=== PATIENT | female | born 1995 | race African-American/Black ===

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

== ENCOUNTER 2018-01-06 01:15 | Emergency (ER) | payer MEDICAID ==
[~2018-01-06] VITALS: Ht 162.6 cm; Wt 59.0 kg
[2018-01-06 04:07] LABS: BASOPHILS % 0.8 % (0.0-2.0); EOSINOPHILS % 0.5 % (0.0-5.0); HEMOGLOBIN. 13.4 g/dL (12.0-16.0); LYMPHOCYTES % 14.2 % (20.0-50.0); MEAN CORPUSCULAR VOLUME 82.5 fL (81.0-99.0); MEAN PLATELET VOLUME 9.6 fl (7.4-10.4); MONOCYTES % 7.9 % (2.0-8.0); NEUTROPHILS % 76.6 % (40.0-76.0); PLATELET 285 x1000/uL (130-400); RED BLOOD CELL COUNT 4.97 mill/uL (4.2-5.4); RED CELL DISTRIBUTION WIDTH 13.6 % (11.6-14.6)
[2018-01-06 04:13] LABS: CHLORIDE 109 mEq/L (98-107)
[2018-01-06 04:17] LABS: ETHANOL BLOOD < 10 mg/dL
[2018-01-06] MEDS ORDERED: BACITRACIN ZINC OINT UDPKT TOP ONE (08:30)
[2018-01-06] MEDS ORDERED: IBUPROFEN 600MG TABLET PO STA (09:30)
[2018-01-06 11:00] VITALS: BP 110/80
== END 2018-01-06 11:54 | disposition home or self-care (01) ==
LOC: ER 01:15
DX: F91.8 Other conduct disorders (principal); F32.9 Major depressive disorder, single episode, unspecified; F17.200 Nicotine dependence, unspecified, uncomplicated; Z88.6 Allergy status to analgesic agent
CPT/HCPCS: 36415; 73060; 80053; 80307; 80329; 85025; 99284; G0482

== ENCOUNTER 2019-10-05 12:22 | Emergency (ER) | payer MEDICAID ==
[~2019-10-05] VITALS: Ht 165.1 cm; Wt 82.0 kg
[2019-10-05] MEDS ORDERED: ACETAMINOPHEN 325MG TABLET PO STA (12:45)
[2019-10-05 13:41] LABS: BASOPHILS % 0.7 % (0.0-2.0); EOSINOPHILS % 0.8 % (0.0-5.0); HEMATOCRIT. 41.6 % (36.0-48.0); HEMOGLOBIN. 13.4 g/dL (12.0-16.0); LYMPHOCYTES % 19.8 % (20.0-50.0); MEAN CORPUSCULAR HEMOGLOBIN 24.9 pg (28.0-32.0); MEAN CORPUSCULAR VOLUME 77.4 fL (81.0-99.0); MEAN PLATELET VOLUME 9.5 fl (7.4-10.4); MONOCYTES % 4.7 % (2.0-8.0); PLATELET 330 x1000/uL (130-400); RED BLOOD CELL COUNT 5.37 mill/uL (4.2-5.4); RED CELL DISTRIBUTION WIDTH 15.7 % (11.6-14.6)
[2019-10-05 13:48] LABS: CHLORIDE 109 mEq/L (98-107); CLARITY URINE CLOUDY (CLEAR); COLOR URINE DK YELLOW (YELLOW); KETONES URINE TRACE (NEGATIVE); LEUKOCYTE ESTERASE URINE TRACE (NEGATIVE); NITRITE URINE NEGATIVE (NEGATIVE); OCCULT BLOOD URINE 3+ (NEGATIVE); PROTEIN URINE 1+ (NEGATIVE); SPECIFIC GRAVITY URINE 1.041 (1.005-1.030)
[2019-10-05 13:52] LABS: ETHANOL BLOOD 33 mg/dL
[2019-10-05 14:14] LABS: *AMPHETAMINES SCREEN URINE NEGATIVE (NEGATIVE); *BARBITURATES SCREEN URINE NEGATIVE (NEGATIVE); *BENZODIAZEPINES SCREEN URINE NEGATIVE (NEGATIVE); METHADONE URINE SCREEN NEGATIVE (NEGATIVE)
[2019-10-05 14:15] LABS: *COCAINE SCREEN URINE PRESUMTIVE POSITIVE (NEGATIVE); CANNABINOID URINE SCREEN NEGATIVE (NEGATIVE); OPIATES URINE SCREEN NEGATIVE (NEGATIVE); PHENCYCLIDINE URINE SCREEN NEGATIVE (NEGATIVE)
[2019-10-05] MEDS ORDERED: POTASSIUM CHLORIDE 20MEQ TABLET SR PO ONE (14:15)
[2019-10-05 17:16] VITALS: BP 136/72
== END 2019-10-05 17:31 | disposition home or self-care (01) ==
LOC: ER 12:22
DX: T40.5X1A Poisoning by cocaine, accidental (unintentional), initial encounter (principal); F10.129 Alcohol abuse with intoxication, unspecified; E87.6 Hypokalemia; Y90.1 Blood alcohol level of 20-39 mg/100 ml; Z88.6 Allergy status to analgesic agent
CPT/HCPCS: 36415; 80053; 80305; 80320; 81003; 81025; 85025; 93005; 99285; G0480

== ENCOUNTER 2020-09-23 08:31 | Emergency (ER) | payer MEDICAID ==
[~2020-09-23] VITALS: Ht 165.1 cm; Wt 59.0 kg
[2020-09-23 08:39] VITALS: BP 106/52
== END 2020-09-23 10:03 | disposition left against medical advice (07) ==
LOC: ER 08:31
DX: Z53.21 Procedure and treatment not carried out due to patient leaving prior to being seen by health care provider (principal)

== ENCOUNTER 2020-10-24 11:41 | Inpatient (IN) | payer MEDICAID ==
[~2020-10-24] VITALS: Ht 167.6 cm; Wt 68.5 kg
[2020-10-24] MEDS ORDERED: SODIUM CHLORIDE 0.9% 1,000 ML IV ONE ×2 (12:30→19:00)
[2020-10-24 14:48] LABS: BASOPHILS % 0.3 % (0.0-2.0); EOSINOPHILS % 0.1 % (0.0-5.0); HEMOGLOBIN. 13.8 g/dL (12.0-16.0); LYMPHOCYTES % 7.3 % (20.0-50.0); MEAN CORPUSCULAR HEMOGLOBIN 27.7 pg (28.0-32.0); MEAN CORPUSCULAR VOLUME 84.2 fL (81.0-99.0); MEAN PLATELET VOLUME 9.2 fl (7.4-10.4); MONOCYTES % 3.4 % (2.0-8.0); NEUTROPHILS % 88.9 % (40.0-76.0); PLATELET 284 x1000/uL (130-400); RED BLOOD CELL COUNT 4.98 mill/uL (4.2-5.4); RED CELL DISTRIBUTION WIDTH 13.9 % (11.6-14.6)
[2020-10-24 14:51] LABS: CHLORIDE 109 mEq/L (98-107)
[2020-10-24 14:55] LABS: ETHANOL BLOOD 10 mg/dL
[2020-10-24 15:07] LABS: HCG SCREEN NEGATIVE
[2020-10-24] MEDS ORDERED: SODIUM CHLORIDE 0.9% 1000ML BAG (SEPSIS BOLUS) IV ONE (19:45)
[2020-10-24] MEDS ORDERED: CEFTRIAXONE 1 G PREMIX 50 ML IV ONE (19:45)
[2020-10-24 22:39] LABS: CLARITY URINE CLEAR (CLEAR); COLOR URINE YELLOW (YELLOW); KETONES URINE NEGATIVE (NEGATIVE); LEUKOCYTE ESTERASE URINE NEGATIVE (NEGATIVE); NITRITE URINE POSITIVE (NEGATIVE); OCCULT BLOOD URINE 3+ (NEGATIVE); PROTEIN URINE NEGATIVE (NEGATIVE); SPECIFIC GRAVITY URINE 1.023 (1.005-1.030)
[2020-10-24 22:50] LABS: *BARBITURATES SCREEN URINE NEGATIVE (NEGATIVE); *BENZODIAZEPINES SCREEN URINE NEGATIVE (NEGATIVE); METHADONE URINE SCREEN NEGATIVE (NEGATIVE)
[2020-10-24 22:51] LABS: OPIATES URINE SCREEN NEGATIVE (NEGATIVE); PHENCYCLIDINE URINE SCREEN NEGATIVE (NEGATIVE)
[2020-10-24 22:52] LABS: *AMPHETAMINES SCREEN URINE PRESUMTIVE POSITIVE (NEGATIVE); *COCAINE SCREEN URINE PRESUMTIVE POSITIVE (NEGATIVE); CANNABINOID URINE SCREEN PRESUMTIVE POSITIVE (NEGATIVE)
[2020-10-24 23:50] VITALS: BP 111/54
[2020-10-25 00:03] VITALS: BP 111/54
[2020-10-25] MEDS ORDERED: ONDANSETRON HCL 4MG/2ML INJ IV PRN (00:45)
[2020-10-25] MEDS ORDERED: *PATIENT'S OWN MEDICATION STORAGE XX SCH (02:00)
[2020-10-25 04:00] VITALS: BP 102/50
[2020-10-25 05:35] VITALS: BP 115/68
[2020-10-25] MEDS: FAMOTIDINE 20MG TABLET PO SCH ×2 (08:21→16:37)
[2020-10-25 08:22] LABS: BASOPHILS % 0.6 % (0.0-2.0); EOSINOPHILS % 0.9 % (0.0-5.0); HEMATOCRIT. 40.7 % (36.0-48.0); HEMOGLOBIN. 13.2 g/dL (12.0-16.0); LYMPHOCYTES % 20.2 % (20.0-50.0); MEAN CORPUSCULAR HEMOGLOBIN 27.4 pg (28.0-32.0); MEAN CORPUSCULAR VOLUME 84.7 fL (81.0-99.0); MEAN PLATELET VOLUME 9.3 fl (7.4-10.4); MONOCYTES % 5.3 % (2.0-8.0); PLATELET 279 x1000/uL (130-400); RED CELL DISTRIBUTION WIDTH 13.9 % (11.6-14.6)
[2020-10-25 08:45] LABS: CHLORIDE 112 mEq/L (98-107)
[2020-10-25] MEDS ORDERED: LEVO500T89 MT (11:34)
[2020-10-25 12:00] VITALS: BP 94/62
[2020-10-25 16:00] VITALS: BP 94/51
[2020-10-25 20:00] VITALS: BP 135/66
[2020-10-25] MEDS: CEFTRIAXONE 1,000 MG in DEXTROSE 5% WATER 50 ML IV SCH (20:51)
[2020-10-26] VITALS: BP 98/50
[2020-10-26 04:00] VITALS: BP 91/52
[2020-10-26] MEDS: FAMOTIDINE 20MG TABLET PO SCH ×2 (10:03→17:22)
[2020-10-26 16:26] VITALS: BP 105/61
[2020-10-26 20:00] VITALS: BP 101/50
[2020-10-26] MEDS: CEFTRIAXONE 1,000 MG in DEXTROSE 5% WATER 50 ML IV SCH (20:20)
[2020-10-26] MEDS ORDERED: ACETAMINOPHEN 325MG TABLET PO PRN (23:45)
[2020-10-26] MEDS ORDERED: LORAZEPAM 1MG TABLET PO PRN (23:45)
[2020-10-27] VITALS: BP 106/71
[2020-10-27 04:00] VITALS: BP 130/87
[2020-10-27 08:06] VITALS: BP 103/60
[2020-10-27] MEDS: FAMOTIDINE 20MG TABLET PO SCH (08:40)
== END 2020-10-27 10:45 | disposition left against medical advice (07) | DRG 52 ==
LOC: ER 11:46 → EDBEDREQ 19:59 → EDBEDREQTM 19:59 → MICUSO 22:26 → 6WST 22:48
PROVIDERS: ADMIT Internal Medicine; ATTEND Internal Medicine
DX: G92 Toxic encephalopathy (principal); E87.8 Other disorders of electrolyte and fluid balance, not elsewhere classified; I95.9 Hypotension, unspecified; I48.91 Unspecified atrial fibrillation; N39.0 Urinary tract infection, site not specified; F17.210 Nicotine dependence, cigarettes, uncomplicated; Z20.822 Contact with and (suspected) exposure to COVID-19; F32.9 Major depressive disorder, single episode, unspecified; Z53.29 Procedure and treatment not carried out because of patient's decision for other reasons; F15.10 Other stimulant abuse, uncomplicated; F12.10 Cannabis abuse, uncomplicated; F14.10 Cocaine abuse, uncomplicated; Z88.6 Allergy status to analgesic agent; Z71.51 Drug abuse counseling and surveillance of drug abuser
CPT/HCPCS: 36415; 71045; 80048; 80053; 80305; 80320; 81003; 83605; 83880; 84484; 84703; 85025; 87426; 93005; 93306; 99285; J0696; J7030; J7060; G0480

== ENCOUNTER 2020-12-26 23:08 | Emergency (ER) | payer MEDICAID ==
[~2020-12-26] VITALS: Ht 175.3 cm; Wt 64.0 kg
[~2020-12-26 23:08] MED LIST: LEVO500T89 MT
[2020-12-27] MEDS ORDERED: TOPUD MT (00:11)
[2020-12-27] MEDS ORDERED: TETANUS, DIPHTHERIA, PERTUSSIS VAC/PF 0.5ML (>10YR OLD) IM ONE (00:15)
[2020-12-27] MEDS ORDERED: ACETAMINOPHEN 325MG TABLET PO ONE (00:15)
[2020-12-27] MEDS ORDERED: BACITRACIN ZINC OINT UDPKT TOP ONE (00:15)
[2020-12-27 00:45] VITALS: BP 90/55
== END 2020-12-27 00:50 | disposition home or self-care (01) ==
LOC: ER 23:08
DX: S80.211A Abrasion, right knee, initial encounter (principal); S60.811A Abrasion of right wrist, initial encounter; F14.10 Cocaine abuse, uncomplicated; F12.10 Cannabis abuse, uncomplicated; Z88.6 Allergy status to analgesic agent; X58.XXXA Exposure to other specified factors, initial encounter; Y93.89 Activity, other specified; Y92.89 Other specified places as the place of occurrence of the external cause
CPT/HCPCS: 90471; 90715; 99283

== ENCOUNTER 2021-05-01 10:01 | Emergency (ER) | payer MEDICAID, OTHER ==
[~2021-05-01] VITALS: Ht 162.6 cm; Wt 59.0 kg
[~2021-05-01 10:01] MED LIST changes: +TOPUD MT
[2021-05-01] MEDS ORDERED: ACETAMINOPHEN 500MG TABLET PO ONE (10:45)
[2021-05-01 12:27] VITALS: BP 128/74
== END 2021-05-01 12:37 | disposition home or self-care (01) ==
LOC: ER 10:01
DX: S02.2XXA Fracture of nasal bones, initial encounter for closed fracture (principal); R55 Syncope and collapse; F12.10 Cannabis abuse, uncomplicated; F14.10 Cocaine abuse, uncomplicated; Z88.6 Allergy status to analgesic agent; Y04.0XXA Assault by unarmed brawl or fight, initial encounter; Y93.89 Activity, other specified; Y92.89 Other specified places as the place of occurrence of the external cause; Y99.8 Other external cause status
CPT/HCPCS: 70486; 81025; 99284